=== PATIENT | female | born 1950 | race Caucasian/White ===

== ENCOUNTER 2018-01-04 12:10 | Emergency (ER) | payer BC, MEDICARE ==
[~2018-01-04] VITALS: Ht 147.3 cm; Wt 66.7 kg
[2018-01-04] MEDS ORDERED: LISINOPRIL10 MG PO (12:30)
[2018-01-04] MEDS ORDERED: NORCO 5-325 TA1 EACH PO (13:31)
[2018-01-04 13:39] VITALS: BP 158/99
== END 2018-01-04 13:40 | disposition home or self-care (01) ==
LOC: M.ERS 12:10
DX: S52.501A Unspecified fracture of the lower end of right radius, initial encounter for closed fracture (principal); S52.601A Unspecified fracture of lower end of right ulna, initial encounter for closed fracture; I10 Essential (primary) hypertension; W01.0XXA Fall on same level from slipping, tripping and stumbling without subsequent striking against object, initial encounter; Y93.89 Activity, other specified; Y92.89 Other specified places as the place of occurrence of the external cause; Y99.8 Other external cause status

== ENCOUNTER 2018-06-26 13:09 | Inpatient (IN) | payer BC, MEDICARE ==
[~2018-06-26] VITALS: Ht 147.3 cm; Wt 80.7 kg
[~2018-06-26 13:09] MED LIST: LISINOPRIL10 MG PO; NORCO 5-325 TA1 EACH PO
[2018-06-26 13:11] VITALS: BP 148/100
[2018-06-26 13:30] LABS: ABSOLUTE BASOPHILS 0.1 thou/uL (0.0-0.2); ABSOLUTE EOSINOPHILS 0.3 thou/uL (0.0-0.7); ABSOLUTE LYMPHOCYTES 3.9 thou/uL (0.8-5.3); ABSOLUTE MONOCYTES 0.9 thou/uL (0.0-1.2); ABSOLUTE NEUTROPHILS 5.2 thou/uL (1.6-8.1); BASOPHILS 1.1 %; EOSINOPHILS 2.4 %; HEMATOCRIT 46.9 % (37.0-47.0); HEMOGLOBIN 15.4 gm/dL (12.0-15.0); MCH 30.7 pg (26.0-34.0); MONOCYTES 8.6 %; MPV 7.1 fl. (7.2-11.1); NUCLEATED RBCS 0 /100WBC; PLATELET COUNT* 496 thou/uL (150-400); POLYS 49.9 %; RBC 5.04 mil/uL (4.20-5.00); RDW-CV 13.5 % (10.5-14.5); WBC 10.3 thou/uL (4.0-11.0)
[2018-06-26 13:44] LABS: APTT 27.5 Seconds (25.0-31.3); PROTIME 9.9 Seconds (9.20-11.50)
[2018-06-26 14:15] LABS: ANION GAP 10 mmol/L (7-16); BUN 16 mg/dL (7-18); CHLORIDE 100 mmol/L (98-107); CO2 28 mmol/L (21-32); CREATININE 1.2 mg/dL (0.6-1.3); GLUCOSE 114 mg/dL (70-99); POTASSIUM 3.7 mmol/L (3.5-5.1); SODIUM 138 mmol/L (136-145)
[2018-06-26 14:22] VITALS: BP 120/87
[2018-06-26 14:37] LABS: ALBUMIN 4.2 g/dL (3.4-5.0); ALKALINE PHOSPHATASE 90 U/L (46-116); CK-MB MASS 1.6 ng/mL (<0.5-3.6); LIPASE 124 U/L (73-393); NT-PRO BRAIN NAT PEPTIDE 1478 pg/mL (<300); SGOT 24 U/L (15-37); SGPT 17 U/L (30-65); TOTAL BILIRUBIN 0.6 mg/dL (<0.1-1.0); TROPONIN-I LEVEL <0.06 ng/mL (<0.06)
[2018-06-26 14:50] VITALS: BP 130/77
[2018-06-26 15:06] VITALS: BP 113/77
--- NOTE | 2018-06-26 15:48 | EKG ---
[place] [address] ELECTROCARDIOGRAM REPORT Name: FREDDY CEDILLO I Room: [address] ADM IN M.R.#: [id number] Admission: 06/26/18 Attend Phys: Goyo Ornelas MD Discharge: Date of : 54 Report #: [id number] THIS REPORT FOR: //name// [facility] ED Test Date: 2018-06-26 Test Time: 13:13:53 Pat Name: FREDDY CEDILLO Department: Room: [facility] Gender: F Ct Manager: Anna LUJAN : 1950 Requested By: Tk Betancourt Order Number: [id number] MD: Scott Licona Measurements Intervals [place] Rate: 166 P: MT: QRS: -40 QRSD: 87 T: 173 QT: 283 QTc: 471 Interpretive Statements Atrial fibrillation with rapid V-rate Abnormal R-wave progression, late transition Inferior infarct, old Lateral leads are also involved No previous ECG available for comparison Electronically Signed On 06-26-2018 15:48:21 CDT by Scott Licona [email or web address] <ELECTRONICALLY SIGNED> By: Scott Licona MD, FACC 06/26/18 1548 1313 1313 Scott Licona MD, [facility] /EPI
--- NOTE | 2018-06-26 18:15 | 2DMMODE ---
[place] [address] 2 D/M-MODE ECHOCARDIOGRAM Name: MAMADOUFREDDY Room: [address] IN [facility]#: [id number] Admission: 06/26/18 Attend Phys: Goyo Ornelas, Discharge: Date of : 54 Date of Service: 06/26/18 1815 Report #: [id number] THIS REPORT FOR: //name// APPROVED REPORT Study performed: 06/26/2018 15:21:53 EXAM: Comprehensive 2D, Doppler, and color-flow Echocardiogram Patient Location: In-Patient Room #: [facility] Status: routine BSA: 1.66 HR: 121 bpm BP: 113/77 mmHg Rhythm: NSR Other Information Study Quality: Fair Indications Atrial Fibrillation Echo Enhancing Agent Indication: Endocardial border delineation Agent(s) / Amount(s) Used: Agitated Saline, Optison 3 cc 2D Dimensions IVSd: 9.46 (7-11mm) LVOT Diam: 16.73 (18-24mm) LVDd: 41.49 mm PWd: 9.53 (7-11mm) Ascending Ao: 31.05 (22-36mm) LVDs: 28.94 (25-40mm) Aortic Root: 29.70 mm Volumes Left Atrial Volume (Systole) LA ESV Index: 39.30 mL/m2 Aortic Valve AoV Peak Owen.: 0.94 m/s AO Peak Gr.: 3.54 mmHg LVOT Max P.96 mmHg AO Mean Gr.: 2.17 mmHg LVOT Mean P.46 mmHg LVOT Max V: 0.86 m/s AO V2 VTI: 15.01 cm LVOT Mean V: 0.56 m/s CRISS (VTI): 1.84 cm2 LVOT V1 VTI: 12.57 [place] [address] 2 D/M-MODE ECHOCARDIOGRAM Name: FREDDY CEDILLO I Room: [address] IN [facility].#: [id number] Admission: 06/26/18 Attend Phys: Goyo Ornelas, Discharge: Date of : 54 Date of Service: 06/26/18 1815 Report #: [id number] Mitral Valve MV Decel. Time: 115.83 ms MV PHT: 33.59 ms MVA (PHT): 6.55 cm2 TDI Medial E' Owen.: 0.14 m/s Lateral E' Owen.: 0.16 m/s Pulmonary Valve PV Peak Owen.: 0.67 m/s PV Peak Gr.: 1.77 mmHg Tricuspid Valve RAP Estimate: 5.00 mmHg TR Peak Gr.: 37.75 mmHg RVSP: 42.75 mmHg PA Pressure: 42.75 mmHg Left Ventricle The left ventricle is normal size. apical akinesis There is normal left ventricular wall thickness. Left ventricular systolic function is moderately decreased. LVEF is 30-35%. This study is not technically sufficient to allow evaluation of the LV diastolic function due to atrial fibrillation. Right Ventricle The right ventricle is normal size. The right ventricular systolic function is normal. Atria Left atrium is mildly dilated. The right atrium size is normal. Aortic Valve The aortic valve is normal in structure. Trace aortic regurgitation. There is no aortic valvular stenosis. Mitral Valve The mitral valve is normal in structure. Mild mitral regurgitation. No evidence of mitral valve stenosis. Tricuspid Valve The tricuspid valve is normal in structure. Mild tricuspid regurgitation. Moderate pulmonary hypertension. Pulmonic Valve The pulmonary valve is normal in structure. [place] [address] 2 D/M-MODE ECHOCARDIOGRAM Name: MAMADOUFREDDY I Room: [address]#: [id number] Admission: 06/26/18 Attend Phys: Goyo Ornelas, Discharge: Date of : 54 Date of Service: 06/26/18 1815 Report #: [id number] valvular regurgitation. Great Vessels The aortic root is normal in size. IVC is normal in size and collapses with >50% inspiration Pericardium There is no pericardial effusion. <Conclusion> LVEF is 30-35%. apical akinesis Left atrium is mildly dilated. Mild mitral regurgitation. Mild tricuspid regurgitation. Moderate pulmonary hypertension. <ELECTRONICALLY SIGNED> By: Patrick Fisher MD, [facility] 06/26/181814 14 14 Patrick Fisher MD, FACC /INF
[2018-06-26 19:35] VITALS: BP 140/90
[2018-06-27] VITALS (12 sets, daily range): BP systolic 94–144; BP diastolic 55–90
[2018-06-27 05:29] LABS: ANION GAP 10 mmol/L (7-16); BUN 17 mg/dL (7-18); CALCIUM 9.1 mg/dL (8.5-10.1); CHLORIDE 104 mmol/L (98-107); CHOLESTEROL 219 mg/dL (<200); CO2 27 mmol/L (21-32); GLUCOSE 106 mg/dL (70-99); HDL CHOLESTEROL 71 mg/dL (>40); LDL CHOLESTEROL 129 mg/dL (<100); MAGNESIUM 2.1 mg/dL (1.8-2.4); POTASSIUM 4.2 mmol/L (3.5-5.1); SODIUM 141 mmol/L (136-145); TC:HDL 3.1 Ratio (Not establshd); TRIGLYCERIDE 99 mg/dL (<150); VLDL 20 mg/dL (<40)
[2018-06-27 05:32] LABS: SERUM ASSESSMENT Clear
[2018-06-28] VITALS (9 sets, daily range): BP systolic 91–998; BP diastolic 52–80
[2018-06-28 06:13] LABS: CALCIUM 8.8 mg/dL (8.5-10.1); CREATININE 0.8 mg/dL (0.6-1.3); MAGNESIUM 1.9 mg/dL (1.8-2.4); POTASSIUM 4.5 mmol/L (3.5-5.1)
[2018-06-29] VITALS: BP 109/68
[2018-06-29 04:00] VITALS: BP 133/76
[2018-06-29 05:19] LABS: ABSOLUTE EOSINOPHILS 0.1 thou/uL (0.0-0.7); ABSOLUTE LYMPHOCYTES 1.6 thou/uL (0.8-5.3); ABSOLUTE MONOCYTES 1.1 thou/uL (0.0-1.2); ABSOLUTE NEUTROPHILS 9.3 thou/uL (1.6-8.1); BASOPHILS 0.4 %; EOSINOPHILS 0.8 %; HEMATOCRIT 36.7 % (37.0-47.0); LYMPHOCYTES 13.2 %; MCH 31.3 pg (26.0-34.0); MCHC 33.5 g/dL (28.0-37.0); MCV 93.4 fL (80.0-100.0); NUCLEATED RBCS 0 /100WBC; POLYS 76.6 %; RBC 3.93 mil/uL (4.20-5.00); RDW-CV 13.6 % (10.5-14.5); WBC 12.1 thou/uL (4.0-11.0)
[2018-06-29 05:35] LABS: HEMOGLOBIN 12.3 gm/dL (12.0-15.0); PLATELET COUNT* 277 thou/uL (150-400)
[2018-06-29 08:00] VITALS: BP 105/66
[2018-06-29 12:00] VITALS: BP 130/83
[2018-06-29 16:00] VITALS: BP 118/68
[2018-06-29 20:00] VITALS: BP 107/66
[2018-06-30] VITALS (19 sets, daily range): BP systolic 75–128; BP diastolic 32–88
[2018-06-30 04:53] LABS: ABSOLUTE BASOPHILS 0.1 thou/uL (0.0-0.2); ABSOLUTE EOSINOPHILS 0.2 thou/uL (0.0-0.7); ABSOLUTE LYMPHOCYTES 1.5 thou/uL (0.8-5.3); ABSOLUTE NEUTROPHILS 6.7 thou/uL (1.6-8.1); BASOPHILS 1.2 %; EOSINOPHILS 2.2 %; HEMATOCRIT 36.1 % (37.0-47.0); HEMOGLOBIN 12.2 gm/dL (12.0-15.0); LYMPHOCYTES 15.6 %; MCH 31.3 pg (26.0-34.0); MCHC 33.7 g/dL (28.0-37.0); MCV 92.7 fL (80.0-100.0); MONOCYTES 10.6 %; MPV 8.1 fl. (7.2-11.1); NUCLEATED RBCS 0 /100WBC; PLATELET COUNT* 305 thou/uL (150-400); POLYS 70.4 %; RBC 3.89 mil/uL (4.20-5.00); RDW-CV 13.5 % (10.5-14.5); WBC 9.5 thou/uL (4.0-11.0)
[2018-06-30] MEDS ORDERED: PACERONE 200 M200 M1 PO (09:28)
[2018-06-30] MEDS ORDERED: COREG6.25 MG PO (09:28)
[2018-06-30] MEDS ORDERED: ELIQUIS5 MG PO (09:28)
[2018-06-30] MEDS ORDERED: LIPITOR 20 MG T20 M1 PO (09:28)
[2018-06-30] MEDS ORDERED: DIGOXIN125 MCG PO (09:29)
--- NOTE | 2018-06-30 13:33 | TEE ---
[place] [address] TRANSESOPHAGEAL ECHOCARDIOGRAM Name: SHANNAN CEDILLODUSTIN Gay Room: [address] IN [facility]#: [id number] Admission: 06/26/18 Attend Phys: Goyo Ornelas, Discharge: Date of : 54 Date of Service: 06/30/18 1333 Report #: [id number] THIS REPORT FOR: //name// APPROVED REPORT Study performed: 06/30/2018 12:11:10 EXAM: Transesophageal Echocardiogram Patient Location: In-Patient Room #: [facility] Status: routine BSA: 1.73 HR: 71 bpm BP: 112/74 mmHg Rhythm: Atrial Fibrillation Other Information Study Quality: Good Indications Atrial Fibrillation Echo Enhancing Agent Indication: Rule out Shunt Agent(s) / Amount(s) Used: Agitated Saline 20 cc Comments: 2 Bubble studies Procedure After obtaining informed consent, patient underwent transesophageal echo in the [employer]. Type of Sedation : Conscious Sedation Sedation was administered by Morenita Siddiqui RN. Sedation start time: 1218 Case end Time: 1241 Sedation was achieved intravenously with: Versed (6) Fentanyl (50) Transesophageal probe was inserted and advanced into esophagus without difficulty by Patrick Fisher MD, FACC. Echo enhancement indication: R/O Septal defect. Echo enhancement agent administered: Agitated Saline The AFUA was performed without complications. Synchronized Cardioversion attempted: Successful Synchronized Cardioversion acheived with 200 Joules after 1 attempt(s). Rhythm following Synchronized Cardioversion: Normal Sinus Rhythm Throughout the procedure, the blood pressure, pulse oximetry, cardiac [address] [address] TRANSESOPHAGEAL ECHOCARDIOGRAM Name: SHANNAN CEDILLODUSTIN Gay Room: [address]#: [id number] Admission: 06/26/18 Attend Phys: Goyo Ornelas, Discharge: Date of : 54 Date of Service: 06/30/18 1333 Report #: [id number] rhythm, and rate were monitored. The patient tolerated the procedure without adverse effects. Recovery from conscious sedation was uneventful and vital signs were stable. Left Ventricle The left ventricle is normal size. There is normal LV segmental wall motion. There is normal left ventricular wall thickness. Left ventricular systolic function is normal. The left ventricular ejection fraction is within the normal range. LVEF is 55-60%. Right Ventricle The right ventricle is normal size. The right ventricular systolic function is normal. Atria No thrombus is visualized in the left atrium or appendage. Left atrium is mildly dilated. Interatrial septum is intact without evidence of ASD or PFO. Right atrium is mildly dilated. Aortic Valve The aortic valve is normal in structure. No aortic regurgitation is present. There is no aortic valvular stenosis. Mitral Valve The mitral valve is normal in structure. Mild mitral regurgitation. No evidence of mitral valve stenosis. Tricuspid Valve The tricuspid valve is normal in structure. Mild tricuspid regurgitation. Pulmonic Valve The pulmonary valve is normal in structure. There is no pulmonic valvular regurgitation. Great Vessels The aortic root is normal in size. Pericardium There is no pericardial effusion. <Conclusion> LVEF is 55-60%. No thrombus is visualized in the left atrium or appendage. Left atrium is [place] [address] TRANSESOPHAGEAL ECHOCARDIOGRAM Name: MAMADOUFREDDY I Room: [address] IN .R.#: [id number] Admission: 06/26/18 Attend Phys: Goyo Ornelas, Discharge: Date of : 54 Date of Service: 06/30/181332 Report #: [id number] Right atrium is mildly dilated. Mild mitral regurgitation. Mild tricuspid regurgitation. successful cardioversion of atrial fibrillation to nsr <ELECTRONICALLY SIGNED> By: Patrick Fisher MD, FACC 06/30/181332 32 32 Patrick Fisher MD, FACC /INF
[2018-06-30] MEDS ORDERED: PACERONE200 MG PO (14:45)
[2018-06-30] MEDS ORDERED: CARDIZEM60 MG PO (14:46)
--- NOTE | 2018-06-30 19:09 | CARD ---
[address] [address] CARDIAC CATH REPORT Name: FREDDY CEDILLO I Room: [address] IN [facility]#: [id number] Admission: 06/26/18 Attend Phys: Goyo Ornelas MD Discharge: 06/30/18 Date of : 54 Report #: [id number] THIS REPORT FOR: //name// APPROVED REPORT Study performed: 06/27/2018 17:02:00 Patient Details Patient Status: IN Room #: The patient is a 68 year-old female Event Personnel Patrick Fisher Trade Recruiter, Gemini Johnson RN RN, Claribel Song RN Monitor, Juancarlos Buckner (R) Scrub Procedures Performed Art Access - R radial artery Left Heart Cath w/or w/o Coronaries [id number] [facility] Hemostasis with Hemoband , Complete Heart Catheterization Indication Atrial fibrillation, Cardiomyopathy Admission/Lab Medications/Medications given during procedure Heparin Unfract. Procedure Narrative The patient was brought electively to the Cardiac Catheterization Laboratory and was prepped and draped in a sterile manner. The right wrist was infiltrated with 2% Lidocaine subcutaneous anesthesia. A Slender Glidesheath sheath was inserted into the right radial artery. Coronary angiography was performed using coronary diagnostic catheters. The right coronary system was accessed and visualized with a Diagnostic catheter. The left coronary system was accessed and visualized with a Diagnostic catheter. The left ventricle was accessed and visualized with a Diagnostic catheter. Left ventricular/Aortic Valve gradient assessed via catheter pullback. Left ventriculogram was performed in [place] projection. Closure device was deployed with a 6 Fr R BAND. The patient tolerated the procedure well and there were no complications associated with the procedure. There was no hematoma. Intraoperative Conscious Sedation Sedation start time: 1736 Case end Time: [address] [place] [address] CARDIAC CATH REPORT Name: FREDDY CEDILLO I Room: [address] IN [facility]#: [id number] Admission: 06/26/18 Attend Phys: Goyo Ornelas MD Discharge: 06/30/18 Date of : 54 Report #: [id number] Versed 2 mg Dose: 596 mGy Contrast Type and Amount: Omnipaque 90 ml Coronary Angiography The patient's coronary anatomy is co- dominant. [place] Artery Percent Stenosis Left Main: 0 % Prox LAD: 0 % Mid/Distal LAD: 0 % Circumflex: 0 % RCA: 0 % Ramus: % Left Ventriculography The left ventricular ejection fraction is estimated to be 35-40%. Left ventricular wall motion abnormalities are present. There is no mitral insufficiency. apical akinesis noted Hemodynamics The aortic pressure is 102/62 mmHg with a mean of 80 mmHg. The left ventricular pressure is 99/18 mmHg with a mean of mmHg. The left ventricular end diastolic pressure is 18 mmHg. There was no gradient across the aortic valve upon pullback. Pullback from the left ventricle to the aorta revealed no gradient across the aortic valve. Conclusion 1. normal coronaries 2. apical akinesis with EF 35-40% 3. apical ballooning syndrome Recommendations Cardiac Rehabilitation Referral Aggressive Medical Therapy <ELECTRONICALLY SIGNED> By: Ptarick Fisher MD, [facility] 06/30/181907 07 07Davicurt Fisher MD, FACC /INF
== END 2018-06-30 16:15 | disposition home or self-care (01) | DRG 286 ==
LOC: M.ERS 13:09 → M.TBA-ER 14:18 → M.2W 14:18
PROVIDERS: Family Medicine; Internal Medicine; ADMIT Internal Medicine
PROC: 4A023N7 Measurement of Cardiac Sampling and Pressure, Left Heart, Percutaneous Approach (ICD-10-PCS; principal; 2018-06-27)
PROC: B2111ZZ Fluoroscopy of Multiple Coronary Arteries using Low Osmolar Contrast (ICD-10-PCS; 2018-06-27)
PROC: B2151ZZ Fluoroscopy of Left Heart using Low Osmolar Contrast (ICD-10-PCS; 2018-06-27)
PROC: 5A2204Z Restoration of Cardiac Rhythm, Single (ICD-10-PCS; 2018-06-30)
PROC: B24BZZ4 Ultrasonography of Heart with Aorta, Transesophageal (ICD-10-PCS; 2018-06-30)
DX: I48.1 Persistent atrial fibrillation (principal); J18.9 Pneumonia, unspecified organism; I50.21 Acute systolic (congestive) heart failure; E66.9 Obesity, unspecified; I42.9 Cardiomyopathy, unspecified; I11.0 Hypertensive heart disease with heart failure; Z68.37 Body mass index [BMI] 37.0-37.9, adult; Z79.899 Other long term (current) drug therapy

== ENCOUNTER → 2018-08-04 | Outpatient (CLI) | payer BC, MEDICARE ==
[~2018-08-04] MED LIST changes: +CARDIZEM60 MG PO; +COREG6.25 MG PO; +DIGOXIN125 MCG PO; +ELIQUIS5 MG PO; +LIPITOR 20 MG T20 M1 PO; +PACERONE 200 M200 M1 PO; +PACERONE200 MG PO
--- NOTE | 2018-08-04 13:59 | 2DMMODE ---
[place] [address] 2 D/M-MODE ECHOCARDIOGRAM Name: FREDDY CEDILLO Deidra Room: [facility]#: [id number] Admission: 08/04/18 Attend Phys: Scott Licona, Discharge: Date of : 54 Date of Service: 08/04/18 1359 Report #: [id number] THIS REPORT FOR: //name// APPROVED REPORT Study performed: 08/04/2018 10:39:58 EXAM: Comprehensive 2D, Doppler, and color-flow Echocardiogram Patient Location: Out-Patient Status: routine BSA: 1.65 HR: 54 bpm BP: 113/77 mmHg Other Information Study Quality: Good Indications Cardiomyopathy 2D Dimensions IVSd: 8.52 (7-11mm) LVOT Diam: 19.47 (18-24mm) LVDd: 49.35 mm PWd: 10.05 (7-11mm) Ascending Ao: 31.85 (22-36mm) LVDs: 26.97 (25-40mm) Aortic Root: 29.55 mm Volumes Left Atrial Volume (Systole) LA ESV Index: 29.10 mL/m2 Aortic Valve AoV Peak Owen.: 1.40 m/s AO Peak Gr.: 7.83 mmHg LVOT Max P.14 mmHg AO Mean Gr.: 3.90 mmHg LVOT Mean P.43 mmHg LVOT Max V: 0.89 m/s AO V2 VTI: 29.26 cm LVOT Mean V: 0.54 m/s CRISS (VTI): 2.22 cm2 LVOT V1 VTI: 21.79 cm AI [place]: 2.08 m/s2 AI PHT: 558.40 ms Mitral Valve E/A Ratio: 0.95 MV Decel. Time: 176.12 [place] [address] 2 D/M-MODE ECHOCARDIOGRAM Name: FREDDY CEDILLO I Room: [facility]#: [id number] Admission: 08/04/18 Attend Phys: Scott Licona, Discharge: Date of : 54 Date of Service: 08/04/18 1359 Report #: [id number] MV E Max Owen.: 0.76 m/s MV PHT: 51.07 ms MVA (PHT): 4.31 cm2 TDI E/Lateral E': 9.50 E/Medial E': 9.50 Medial E' Owen.: 0.08 m/s Lateral E' Owen.: 0.08 m/s Pulmonary Valve PV Peak Owen.: 0.80 m/s PV Peak Gr.: 2.56 mmHg Tricuspid Valve RAP Estimate: 5.00 mmHg TR Peak Gr.: 26.41 mmHg RVSP: 31.41 mmHg PA Pressure: 31.41 mmHg Left Ventricle The left ventricle is normal size. There is normal LV segmental wall motion. There is normal left ventricular wall thickness. Left ventricular systolic function is normal. The left ventricular ejection fraction is within the normal range. LVEF is 55-60%. The left ventricular diastolic function is normal. Right Ventricle The right ventricle is normal size. The right ventricular systolic function is normal. Atria Left atrium is mildly dilated. Right atrium is mildly dilated. Aortic Valve The aortic valve is normal in structure. Mild aortic regurgitation. There is no aortic valvular stenosis. Mitral Valve The mitral valve is normal in structure. Mild mitral regurgitation. No evidence of mitral valve stenosis. Tricuspid Valve The tricuspid valve is normal in structure. Mild tricuspid regurgitation. estimate pa pressure 35 mm Hg Pulmonic Valve The pulmonary valve is normal in structure. [place] [address] 2 D/M-MODE ECHOCARDIOGRAM Name: FREDDY CEDILLO I Room: [facility]#: [id number] Admission: 08/04/18 Attend Phys: Scott Licona, Discharge: Date of : 54 Date of Service: 08/04/18 1359 Report #: [id number] valvular regurgitation. Great Vessels The aortic root is normal in size. IVC is normal in size and collapses >50% with inspiration. Pericardium There is no pericardial effusion. <Conclusion> LVEF is 55-60%. Left atrium is mildly dilated. Right atrium is mildly dilated. Mild aortic regurgitation. Mild mitral regurgitation. Mild tricuspid regurgitation. estimate pa pressure 35 mm Hg <ELECTRONICALLY SIGNED> By: Patrick Fisher MD, FACC 08/04/18 1359 1359 1359 Patrick Fisher MD, FACC /INF
== END ==
LOC: M.CRD 10:00
DX: I08.3 Combined rheumatic disorders of mitral, aortic and tricuspid valves (principal); I42.9 Cardiomyopathy, unspecified

== ENCOUNTER → 2019-03-30 | Outpatient (CLI) | payer BC, MEDICARE ==
[2019-03-30 16:22] LABS: DIRECT BILIRUBIN 0.1 mg/dL (<0.1-0.3); TOTAL BILIRUBIN 0.4 mg/dL (<0.1-1.0); TOTAL PROTEIN 6.9 g/dL (6.4-8.2)
== END ==
LOC: M.RAD 15:34
PROVIDERS: Internal Medicine Cardiovascular Disease
DX: R91.8 Other nonspecific abnormal finding of lung field (principal); Z79.899 Other long term (current) drug therapy

== ENCOUNTER 2019-04-30 20:03 | Emergency (ER) | payer BC, MEDICARE ==
[~2019-04-30] VITALS: Ht 147.3 cm; Wt 70.3 kg
[2019-04-30 20:45] LABS: HEMATOCRIT 39.3 % (37.0-47.0); HEMOGLOBIN 13.2 gm/dL (12.0-15.0); MCH 29.1 pg (26.0-34.0); MCHC 33.7 g/dL (28.0-37.0); MCV 86.5 fL (80.0-100.0); MPV 6.9 fl. (7.2-11.1); RBC 4.55 mil/uL (4.20-5.00); RDW-CV 13.6 % (10.5-14.5); WBC 7.3 thou/uL (4.0-11.0)
[2019-04-30 20:50] LABS: CALCIUM 8.9 mg/dL (8.5-10.1); CREATININE 1.2 mg/dL (0.6-1.3); POTASSIUM 3.5 mmol/L (3.5-5.1)
[2019-04-30 20:53] LABS: APTT 32.2 Seconds (25.0-31.3); PROTIME 10.4 Seconds (9.20-11.50)
[2019-04-30] MEDS ORDERED: HYDROCODON-ACE1 EAC7 PO (21:57)
[2019-04-30] MEDS ORDERED: CYCLOBENZAPRINE5 MG PO (21:57)
[2019-04-30 22:16] VITALS: BP 138/69
== END 2019-04-30 22:17 | disposition home or self-care (01) ==
LOC: M.ERS 20:03
PROVIDERS: Personal Emergency Response Attendant
DX: S00.83XA Contusion of other part of head, initial encounter (principal); S00.31XA Abrasion of nose, initial encounter; I10 Essential (primary) hypertension; I48.91 Unspecified atrial fibrillation; E78.00 Pure hypercholesterolemia, unspecified; E66.9 Obesity, unspecified; Z79.01 Long term (current) use of anticoagulants; W22.01XA Walked into wall, initial encounter; Y92.89 Other specified places as the place of occurrence of the external cause; Y93.89 Activity, other specified; Y99.8 Other external cause status

== ENCOUNTER → 2019-08-03 | Outpatient (CLI) | payer BC, MEDICARE ==
[~2019-08-03] MED LIST changes: +CYCLOBENZAPRINE5 MG PO; +HYDROCODON-ACE1 EAC7 PO
== END ==
LOC: M.RAD 13:40
DX: Z12.31 Encounter for screening mammogram for malignant neoplasm of breast (principal)

== ENCOUNTER → 2019-11-10 | Outpatient (CLI) | payer MEDICARE ==
[2019-11-10 12:53] LABS: ALBUMIN 3.7 g/dL (3.4-5.0); DIRECT BILIRUBIN 0.1 mg/dL (<0.1-0.3); TOTAL BILIRUBIN 0.4 mg/dL (<0.1-1.0); TOTAL PROTEIN 6.9 g/dL (6.4-8.2)
== END ==
LOC: M.LAB 12:22
PROVIDERS: Nurse Practitioner
DX: I48.0 Paroxysmal atrial fibrillation (principal); Z79.899 Other long term (current) drug therapy

== ENCOUNTER → 2020-05-05 | Outpatient (CLI) | payer MEDICARE ==
[2020-05-05 16:11] LABS: ALBUMIN 3.8 g/dL (3.4-5.0); DIRECT BILIRUBIN 0.1 mg/dL (<0.1-0.3); TOTAL BILIRUBIN 0.5 mg/dL (<0.1-1.0)
== END ==
LOC: M.RAD 15:37
PROVIDERS: ATTEND Internal Medicine Cardiovascular Disease
DX: J98.4 Other disorders of lung (principal); Z79.899 Other long term (current) drug therapy

== ENCOUNTER → 2020-06-22 | Outpatient (CLI) | payer MEDICARE ==
[2020-06-22 11:18] LABS: CHOLESTEROL 131 mg/dL (<200); HDL CHOLESTEROL 49 mg/dL (>40); LDL CHOLESTEROL 70 mg/dL (<100); SERUM ASSESSMENT Clear; TC:HDL 2.7 Ratio (Not establshd); TRIGLYCERIDE 61 mg/dL (<150); VLDL 12 mg/dL (<40)
== END ==
LOC: M.LAB 10:32
PROVIDERS: ATTEND Nurse Practitioner
DX: E78.49 Other hyperlipidemia (principal)